=== PATIENT | female | born 1960 | race Caucasian/White ===

== ENCOUNTER → 2016-09-19 | Outpatient (CLI) | payer OTHER ==
[~2016-09-19] MED LIST: CIPRO250 MG PO; DISCONTINUED MED; FLAGYL PO; FLEXERIL PO; FLEXERIL10 MG PO; HYDROCODON-ACE1 EAC5 PO; HYDROCODONE-APA1 T54 PO; KETOPROFEN PO; LORTAB 5/500 TA1 TA1 PO; LORTAB 7.5-5001 TAB PO; NEURONTIN600 MG PO; PHENERGAN25 M1 DOB; VICODIN 5/500 T1 TAB PO
--- NOTE | ~2016-09-19 | MR112 ---
[facility] A Service of [facility] & [facility] RADIOLOGY TEXT RESULTS PATIENT: HAZEL KENNEDY LOCATION: [facility] : 60 UNIT #: [id number] AGE: [address]: Major Lynn MD SEX: F ORDER DR: [id number] [id number] MR#: [id number] Acc #: [id number] NAME: HAZEL KENNEDY : 1960 SEX: F STUDY DATE/TIME: 09/19/2016 13:29 UNIT: [facility] ROOM: STUDY DESCRIPTION: MR Lumbar WWo Contrast Attending Physician: Major Lynn M.D. Referring Physician: Major Lynn M.D. Ordering Physician: Major Lynn M.D. Primary Care Physician: Campbell Jamison M.D. MRI CENTER REPORT This report is preliminary unless electronic signature is present. EXAM MRI of the lumbar spine with and without contrast. DATE OF EXAM 09/19/2016 COMPARISON MRI of lumbar spine without contrast, dated 07/08/2016. HISTORY New increased low back pain, favoring the right side. It started about 2 weeks ago. History of prior surgery dated 07/14/2016. FINDINGS Multisequence multiplanar imaging of the lumbar spine was obtained with and without contrast. 18 mL of MultiHance was administered intravenously. Vertebral body heights and alignment are preserved. Degenerative disc disease is seen at multiple levels. Loss of disc signal is seen from L2-3 to L5-S1. Edematous endplate changes are noted at L5-S1 predominately in the right lateral aspect. Conus terminates at T12-L1. Signal of conus and cauda equina are within normal limits. Postoperative changes are noted at L4-5 with left hemilaminectomy. It is new since the prior study from 2 months ago. Retroperitoneum is unremarkable. There is peripherally enhancing small fluid collection noted in the posterior midline subcutaneous soft tissue at the level of L4-5. It is seen in the postoperative bed measuring 1.2 x 0.8 cm, and it has peripheral enhancing postoperative granulation tissue. L1-2: Mild disc bulge with minimal bilateral facet change. No canal stenosis or neural foraminal narrowing. L2-3: Concentric disc bulge with superimposed left foraminal [facility] A Service of [facility] RADIOLOGY TEXT RESULTS PATIENT: HAZEL KENNEDY LOCATION: [facility] : 60 UNIT #: [id number] AGE: [address]: Major Lynn MD SEX: F ORDER DR: extraforaminal broad-based protrusion. Mild inferior left neural foraminal narrowing is seen with borderline-sized canal. L3-4: Concentric disc bulge with mild bilateral facet change particularly in the left. Mild inferior left neural foraminal encroachment is seen with borderline-sized canal. L4-5: Status post left hemilaminectomy. There is enhancing granulation tissue extending in the postoperative bed along the left hemilaminectomy side, left lateral aspect of the thecal sac to the left subarticular region, and adjacent foraminal region. Borderline-sized canal is seen with mild left lateral recess encroachment. There is probably mild to moderate left neural foraminal narrowing. Enhancing soft tissue is seen in the [id number] subarticular region of the disc, slightly most prominent in the right central region. Previously, a small protrusion was noted in the region. It is slightly away from the left subarticular granulation tissue. It could represent an annular fissure with protrusion; however, given the enhancement and surgery at this level, correlate with operative note. If there is extension of surgery to this region, it could also represent postoperative granulation tissue. L5-S1: Concentric disc bulge with superimposed central to right foraminal broad-based protrusion. Mild inferior right neural foraminal narrowing is seen without any canal stenosis. IMPRESSION 1. Interval left hemilaminectomy is seen at L4-5 with enhancing granulation tissue along the postoperative bed. There is a small 1.2 x 0.8 cm fluid collection within the midline posterior subcutaneous soft tissue. It could represent a small seroma with surrounding granulation tissue given the recent surgery. Abscess is less likely without corresponding history. 2. Degenerative changes at L5-S1 are redemonstrated as described above, stable. Dictated by... Chithra Lindsay Andrea, M.D. THIS IS AN ELECTRONICALLY VERIFIED REPORT Amadou Mendez M.D. at 09/22/2016 12:36 PM CPR/jt TD: 09/20/2016 17:11 JOB #: [id number] MRI CENTER REPORT Page 1 of 1
== END | disposition home or self-care (01) ==
LOC: SMRI 13:03
DX: M51.26 Other intervertebral disc displacement, lumbar region (principal); M54.5 Low back pain; M47.817 Spondylosis without myelopathy or radiculopathy, lumbosacral region; Z98.890 Other specified postprocedural states
CPT/HCPCS: 72158; A9581